=== PATIENT | male | born 1940 | race Native Hawaiian/Other Pacific Islander ===

== ENCOUNTER 2019-08-07 23:48 | Observation (INO) | payer OTHER ==
[~2019-08-07] VITALS: Ht 182.9 cm; Wt 117.0 kg
[2019-08-07 23:50] VITALS: BP 159/85; TEMP 98.1
[2019-08-08] VITALS (8 sets, daily range): BP systolic 105–165; BP diastolic 65–92; TEMP 97.4–98.2; Ht 182.9 cm; Wt 117.0 kg
[2019-08-08 00:13] LABS: PLATELET COUNT 242 K/uL (142-355)
[2019-08-08 00:31] LABS: PARTIAL THROMBOPLASTIN TIME 29.7 SECONDS (24.5-33.6)
[2019-08-08 00:36] LABS: POTASSIUM 4.2 mmol/L (3.6-5.2); SODIUM 135 mmol/L (136-145)
--- NOTE | 2019-08-08 03:19 | NUR ---
08/08/2019 0117: RECEIVED PT BY W/C TO ROOM 1112 WHO CAME FROM ER. PT ALERT ORIENTED STATED PAIN IN CHEST WAS A 2 OR 3 ON PAIN SCALE. STATED PAIN WAS A SEVERE 8 PRIOR TO COMING TO HOSPITAL. NO DISTRESS NOTED. PT STATED " I JUST WANT TO GET SOME SLEEP" ORIENTED PT TO THE ENVIRONMENT.
[2019-08-08] MEDS ORDERED: OLME20TA5 PO (11:00)
[2019-08-08] MEDS ORDERED: TRULICITY1.5 MG/0.5 SC (11:01)
[2019-08-08] MEDS ORDERED: METFORMIN HYDR850 MG PO (11:07)
[2019-08-08] MEDS ORDERED: SIMV10TA PO (11:08)
[2019-08-08] MEDS ORDERED: TRESIBA FL200 UNIT/M SC (11:09)
[2019-08-08] MEDS ORDERED: HUMALOG KW100 UNIT/M SC (11:10)
[2019-08-08] MEDS ORDERED: PANTOPRAZOLE 40MG TA PO (14:58)
--- NOTE | 2019-08-08 16:08 | NUR ---
1545 PT IV DC'D TIP INTACT NO REDNESS OR SWELLING NOTED. PT TOLERATED WELL. PT GIVEN DISCHARGED INSTRUCTIONS. PT EDUCATED NEW MEDICATION, TO CON'T ROUTINE HOME MEDS, FOLLOW UP WITH DR. MACKAY July AT 1530, IF CHEST PAIN WERE TO REOCCUR TO RETURN TO ER. SIGNS AND SYMPTOMS TO REPORT TO PCP/ ER. PT VERBALIZED UNDERSTANDING. PT DISCHARGED VIA W/C.
== END 2019-08-08 16:47 | disposition home or self-care (01) ==
LOC: ED 23:48 → MED/SURG 08-08 00:40
PROVIDERS: Hospitalist; ADMIT Internal Medicine
DX: R07.89 Other chest pain (principal); R10.13 Epigastric pain; E11.9 Type 2 diabetes mellitus without complications; I10 Essential (primary) hypertension; E78.49 Other hyperlipidemia; E66.8 Other obesity; M15.8 Other polyosteoarthritis
CPT/HCPCS: 80053; 82550; 83880; 84484; 85027; 85610; 85730; 93005; 99220; 99284; G0378; J1650; J2270